=== PATIENT | female | born 1950 | race Caucasian/White ===

== ENCOUNTER 2020-01-13 13:35 | Emergency (ER) | payer MEDICARE ==
[~2020-01-13] VITALS: Ht 162.6 cm; Wt 102.7 kg
[~2020-01-13 13:35] MED LIST: CALCIUM PO; MULTI-DAY1 TA1 PO; TOPROL XL200 MG PO; TYLENOL 500MG500 MG PO
[2020-01-13 13:41] VITALS: TEMP 98.3
[2020-01-13] MEDS ORDERED: XARELTO20 MG PO (14:14)
[2020-01-13] MEDS ORDERED: TOPROL XL 50MG50 MG PO (14:15)
[2020-01-13] MEDS ORDERED: [UNRECOGNIZED DRUG - CODE] (14:16)
[2020-01-13] MEDS ORDERED: ZOLOFT 25MG25 MG PO (14:17)
[2020-01-13] MEDS ORDERED: LASIX 40MG TABL40 MG PO (14:19)
[2020-01-13] MEDS ORDERED: ULTRAM 50MG TAB50 MG PO (14:55)
[2020-01-13 15:28] VITALS: BP 128/60; PULSE 66
== END 2020-01-13 15:30 | disposition home or self-care (01) ==
LOC: COL.ER 13:35
DX: S80.02XA Contusion of left knee, initial encounter (principal); I48.91 Unspecified atrial fibrillation; Z79.82 Long term (current) use of aspirin; Z79.01 Long term (current) use of anticoagulants; W10.9XXA Fall (on) (from) unspecified stairs and steps, initial encounter; Y92.009 Unspecified place in unspecified non-institutional (private) residence as the place of occurrence of the external cause

== ENCOUNTER → 2020-06-08 | Outpatient (CLI) | payer MEDICARE, MEDICAID ==
[~2020-06-08] MED LIST changes: +CALCIUM 600MG+D1 TAB PO; +CRESTOR20 MG PO; +DESYREL 100MG100 MG PO; +FOSAMAX 70MG TA70 MG PO; +LASIX 40MG TABL40 MG PO; +MULTIVITAMIN SEN; +TOPROL XL 50MG50 MG PO; +ULTRAM 50MG TAB50 MG PO; +XARELTO20 MG PO; +ZOLOFT 25MG25 MG PO; +[UNRECOGNIZED DRUG - CODE]
== END ==
LOC: MC.RAD 11:45
DX: Z12.31 Encounter for screening mammogram for malignant neoplasm of breast (principal)

== ENCOUNTER 2020-08-09 08:48 | Day surgery (SDC) | payer MEDICARE, MEDICAID ==
[~2020-08-09] VITALS: Ht 162.6 cm; Wt 109.0 kg
[~2020-08-09 08:48] MED LIST changes: -CALCIUM 600MG+D1 TAB PO; -CRESTOR20 MG PO; -DESYREL 100MG100 MG PO; -FOSAMAX 70MG TA70 MG PO; -MULTIVITAMIN SEN
[2020-08-09] MEDS ORDERED: FOSAMAX 70MG TA70 MG PO (09:46)
[2020-08-09] MEDS ORDERED: CRESTOR20 MG PO (09:47)
[2020-08-09] MEDS ORDERED: DESYREL 100MG100 MG PO (09:48)
[2020-08-09] MEDS ORDERED: MULTIVITAMIN SEN (09:48)
[2020-08-09 10:05] VITALS: BP 132/74; PULSE 56; TEMP 98.1
[2020-08-09 11:15] VITALS: BP 116/72; PULSE 58
--- NOTE | 2020-08-09 11:15 | NUR ---
Pt to GI bay 4 via cart from [facility] [facility]. Pt drowsy, but awake. Pt denies pain or nausea. Pt ambulates to recliner with stand by assistance. Warm blanket provided. Muffin and water given per pt request. Will continue to monitor. Call light within reach.
[2020-08-09 11:30] VITALS: BP 132/72; PULSE 61
--- NOTE | 2020-08-09 11:30 | NUR ---
Pt continues to rest. Denies pain or nausea. Call light within reach.
[2020-08-09 11:45] VITALS: BP 122/63; PULSE 60
--- NOTE | 2020-08-09 11:45 | NUR ---
Pt c/o of pain to left side of panus. Upon inspection an approximetly 2 inch superficial skin tear noted to the crease of the left panus. Area cleansed with guaze and NS. Triple antibotic ointment applied. aware. No futher orders at this time. Discharge instructions reviewed. Pt voices understanding. IV site discontinued with all parts intact. Pt up to dress. Call light within reach.
--- NOTE | 2020-08-09 12:10 | NUR ---
Pt escorted to private car via wheel chair. Pt accompanied home by her friend.
== END 2020-08-09 12:10 | disposition home or self-care (01) ==
LOC: SDCO 08:48
DX: K22.4 Dyskinesia of esophagus (principal); R19.7 Diarrhea, unspecified; K64.8 Other hemorrhoids; Z90.49 Acquired absence of other specified parts of digestive tract; Z90.710 Acquired absence of both cervix and uterus; I10 Essential (primary) hypertension; I08.0 Rheumatic disorders of both mitral and aortic valves; Z86.73 Personal history of transient ischemic attack (TIA), and cerebral infarction without residual deficits; I48.0 Paroxysmal atrial fibrillation; Z85.3 Personal history of malignant neoplasm of breast; E66.9 Obesity, unspecified; Z68.39 Body mass index [BMI] 39.0-39.9, adult; Z90.721 Acquired absence of ovaries, unilateral
CPT/HCPCS: J2704; J7030

== ENCOUNTER 2020-12-04 11:27 | Day surgery (SDC) | payer MEDICARE, MEDICAID ==
[2020-12-04] VITALS (11 sets, daily range): BP systolic 115–170; BP diastolic 62–99; PULSE 53–73; TEMP 98.4
[~2020-12-04] VITALS: Ht 162.6 cm; Wt 108.0 kg
[~2020-12-04 11:27] MED LIST changes: +CRESTOR20 MG PO; +DESYREL 100MG100 MG PO; +FOSAMAX 70MG TA70 MG PO; +MULTIVITAMIN SEN
[2020-12-04] MEDS ORDERED: CALCIUM 600MG+D1 TAB PO (12:07)
[2020-12-04 12:50] LABS: HEMOGLOBIN 10.6 g/dl (12.5-16.0); MEAN CELL VOLUME 95 fl (80.0-100.0); MEAN CORPUSCULAR HEMOGLOBIN 31 pg (27.0-31.0); MEAN CORPUSCULAR HGB CONC 32 g/dl (33.0-37.0); MEAN PLATELET VOLUME 10.4 fl (7.4-10.4); PLATELET COUNT 197 K/mm3 (130-400); RED BLOOD COUNT 3.47 M/mm3 (4.10-5.30)
[2020-12-04 12:57] LABS: PROTHROMBIN TIME 11.4 SECONDS (9.7-12.8)
[2020-12-04 12:59] LABS: PARTIAL THROMBOPLASTIN TIME 31.3 SECONDS (26.0-37.0)
[2020-12-04 13:03] LABS: ALBUMIN 3.4 gm/dL (3.5-5.0); BILIRUBIN,TOTAL 0.3 mg/dL (0.0-1.0); CALCIUM 8.2 mg/dL (8.4-10.2); CREATININE, serum 0.93 (0.52-1.25); MAGNESIUM 2.2 mg/dL (1.6-2.3); POTASSIUM 4.4 mmol/L (3.4-5.0)
--- NOTE | 2020-12-04 14:45 | NUR ---
Pt back to express unit from slab installer after [facility]< bs report from Ernestine VALDEZ. Pt is awake and alert, TR band to rt wrist, cms intact distal. sister at bs. pt aware of poc, nsr/sb on monitor. menu provided, call light in reach, water provided. wctm.
--- NOTE | 2020-12-04 17:00 | NUR ---
We are in process of deflating TR band, no bleeding problems as of yet. Pt has been ambulatory in room to br in rm 15. steady gait. she has partially dressed and is now resting comfortably back on cot. will request tylenol for headache. We are also reviewing dc and fu instructions at this time.
--- NOTE | 2020-12-04 18:00 | NUR ---
Pt ready for departure at this time. TR band has been deflated and site dressed with bandaid, folded 2x2 and coban. cms remains intact distal. we reviewed dc and fu instructions again, and Dr. Ba stopped by to discuss procedure with pt, no questions or concerns at time of departure. IV dc'd with cath intact, dressing applied. pt to exit via wheelchair.
== END 2020-12-04 18:10 | disposition home or self-care (01) ==
LOC: COL.CAR 11:27
PROVIDERS: Internal Medicine Cardiovascular Disease
DX: R07.89 Other chest pain (principal); R06.00 Dyspnea, unspecified; R94.39 Abnormal result of other cardiovascular function study; E78.2 Mixed hyperlipidemia; E66.9 Obesity, unspecified; I48.0 Paroxysmal atrial fibrillation; I10 Essential (primary) hypertension; I08.0 Rheumatic disorders of both mitral and aortic valves; Z20.822 Contact with and (suspected) exposure to COVID-19; Z85.3 Personal history of malignant neoplasm of breast; Z86.73 Personal history of transient ischemic attack (TIA), and cerebral infarction without residual deficits; Z68.41 Body mass index [BMI] 40.0-44.9, adult
CPT/HCPCS: J1644; J2250; J3010; Q9967

== ENCOUNTER → 2021-02-22 | Outpatient (CLI) | payer MEDICARE, MEDICAID ==
[~2021-02-22] MED LIST changes: +CALCIUM 600MG+D1 TAB PO
== END ==
LOC: COL.RAD 13:43
DX: E05.90 Thyrotoxicosis, unspecified without thyrotoxic crisis or storm (principal)

== ENCOUNTER → 2021-03-06 | Outpatient (CLI) | payer MEDICARE, MEDICAID | LOC: COL.RAD 12:07 | DX: G43.009 Migraine without aura, not intractable, without status migrainosus (principal); Z86.73 Personal history of transient ischemic attack (TIA), and cerebral infarction without residual deficits ==

== ENCOUNTER → 2021-05-21 | Outpatient (CLI) | payer MEDICARE, MEDICAID | LOC: COL.CARD 04-09 10:00 | DX: R42 Dizziness and giddiness (principal); G43.009 Migraine without aura, not intractable, without status migrainosus; Z86.73 Personal history of transient ischemic attack (TIA), and cerebral infarction without residual deficits ==

== ENCOUNTER → 2021-06-18 | Outpatient (CLI) | payer MEDICARE, MEDICAID | LOC: MC.RAD 10:11 | DX: Z12.31 Encounter for screening mammogram for malignant neoplasm of breast (principal) ==

== ENCOUNTER 2021-12-17 14:17 | Emergency (ER) | payer MEDICARE, MEDICAID ==
[~2021-12-17] VITALS: Ht 162.6 cm; Wt 113.6 kg
[2021-12-17 14:32] VITALS: TEMP 98
[2021-12-17 18:15] LABS: BASO % 0.3 % (0.0-2.0); EOS # 0.2 K/mm3 (0.0-0.7); EOS % 2.2 % (0.0-4.0); GRAN # 3.6 K/mm3 (1.4-6.5); GRAN % 46.8 % (42.2-75.2); HEMOGLOBIN 11.6 g/dl (12.5-16.0); LYMPH # 3.3 K/mm3 (1.2-3.4); LYMPH % 43.6 % (20.0-51.0); MEAN CELL VOLUME 92 fl (80.0-100.0); MEAN CORPUSCULAR HEMOGLOBIN 30 pg (27-31); MEAN CORPUSCULAR HGB CONC 33 g/dl (33.0-37.0); MEAN PLATELET VOLUME 10.8 fl (7.4-10.4); MONO # 0.5 K/mm3 (0.1-0.6); PLATELET COUNT 206 K/mm3 (130-400); RED BLOOD COUNT 3.83 M/mm3 (4.10-5.30); REDCELL DISTRIBUTION WIDTH-CV 14.2 % (11.5-14.5)
[2021-12-17 18:20] LABS: HEMATOCRIT 35.2 % (37.0-47.0)
[2021-12-17 19:25] VITALS: BP 140/61; PULSE 52
[2021-12-17 19:34] LABS: ALANINE AMINOTRANSFERASE 48 U/L (0-55); ALBUMIN 3.3 gm/dL (3.4-4.8); ALKALINE PHOSPHATASE 129 U/L (40-150); ANION GAP 12 mmol/L (7-16); AST,SGOT 66 U/L (5-34); BILIRUBIN,TOTAL 0.4 mg/dL (0.2-1.2); BLOOD UREA NITROGEN 17 mg/dL (10-20); CARBON DIOXIDE 24 mmol/L (23-31); CHLORIDE 108 mmol/L (98-107); CREATININE, serum 0.93 mg/dL (0.57-1.11); GLUCOSE 90 mg/dL (70-99); POTASSIUM 3.3 mmol/L (3.5-4.5); SODIUM 144 mmol/L (136-145); TOTAL PROTEIN 6.4 gm/dL (6.2-8.1)
[2021-12-17 19:43] LABS: TROPONIN-I < 0.010 ng/mL (0.00-0.033)
== END 2021-12-17 19:25 | disposition home or self-care (01) ==
LOC: COL.ER 14:17
PROVIDERS: Nurse Practitioner Primary Care
DX: R51.9 Headache, unspecified (principal)
CPT/HCPCS: J0595

== ENCOUNTER 2023-02-08 16:40 | Emergency (ER) | payer MEDICARE, MEDICAID ==
[~2023-02-08] VITALS: Ht 162.6 cm; Wt 104.5 kg
[~2023-02-08 16:40] MED LIST changes: +AVAPRO TAB150 MG/TAB PO; +CENTRUM SILVER1 TAB PO; +CEPHALEXIN500 M1 PO; +PERCOCET 325 MG1 TA2 PO; +PROZAC 20MG20 MG PO; +TAMIFLU 75MG75 MG PO; +TESSALON P100 MG/CAP PO
[2023-02-08 16:44] VITALS: TEMP 98.2
[2023-02-08 22:00] VITALS: BP 148/78; PULSE 62
== END 2023-02-08 23:00 | disposition short-term general hospital (02) ==
LOC: COL.ER 16:40
DX: S09.90XA Unspecified injury of head, initial encounter (principal); S70.01XA Contusion of right hip, initial encounter; G93.89 Other specified disorders of brain; Z79.01 Long term (current) use of anticoagulants; W01.0XXA Fall on same level from slipping, tripping and stumbling without subsequent striking against object, initial encounter; Y93.01 Activity, walking, marching and hiking; Y92.009 Unspecified place in unspecified non-institutional (private) residence as the place of occurrence of the external cause
CPT/HCPCS: J2270; J2405

== ENCOUNTER → 2023-05-21 | Outpatient (CLI) | payer MEDICARE, MEDICAID ==
[~2023-05-21] MED LIST changes: +CEFTIN 250250 MG/TAB PO
== END ==
LOC: COL.VAS 12:13
DX: Z51.11 Encounter for antineoplastic chemotherapy (principal); I35.1 Nonrheumatic aortic (valve) insufficiency; C50.411 Malignant neoplasm of upper-outer quadrant of right female breast

== ENCOUNTER 2023-05-25 20:22 | Inpatient (IN) | payer MEDICARE, MEDICAID ==
[~2023-05-25] VITALS: Ht 160 cm; Wt 98.4 kg
[2023-05-25] MEDS ORDERED: Ondansetron 4 MG/2 ML VIAL IV ONE (21:30)
[2023-05-25] MEDS ORDERED: Morphine 4 MG/ML VIAL IV ONE (21:30)
[2023-05-25] MEDS ORDERED: NS 1,000 ML IV ONE ×2 (21:30→23:00)
[2023-05-25 21:59] LABS: BASO % 0.5 % (0.0-2.0); EOS % 0.2 % (0.0-4.0); GRAN # 2.4 K/mm3 (1.4-6.5); GRAN % 36.5 % (42.2-75.2); LYMPH # 3.4 K/mm3 (1.2-3.4); MEAN CELL VOLUME 91 fl (80.0-100.0); MEAN CORPUSCULAR HGB CONC 31 g/dl (33.0-37.0); MEAN PLATELET VOLUME 10.7 fl (7.4-10.4); MONO # 0.7 K/mm3 (0.1-0.6); MONO % 10.9 % (1.7-9.3); PLATELET COUNT 325 K/mm3 (130-400); RED BLOOD COUNT 3.04 M/mm3 (4.10-5.30); REDCELL DISTRIBUTION WIDTH-CV 18.2 % (11.5-14.5)
[2023-05-25 22:08] LABS: HEMOGLOBIN 8.5 g/dl (12.5-16.0); MEAN CORPUSCULAR HEMOGLOBIN 28 pg (27-31)
[2023-05-25 22:09] LABS: HEMATOCRIT 27.8 % (37.0-47.0)
[2023-05-25 22:10] LABS: ALBUMIN 2.7 gm/dL (3.4-4.8); BILIRUBIN,TOTAL 0.4 mg/dL (0.2-1.2); C-REACTIVE PROTEIN 0.23 mg/dL (0.00-0.50); CALCIUM 8.9 mg/dL (8.4-10.2); CREATININE, serum 1.78 mg/dL (0.57-1.11); MAGNESIUM 2.3 mg/dL (1.6-2.6); POTASSIUM 3.5 mmol/L (3.5-4.5); TOTAL PROTEIN 5.7 gm/dL (6.2-8.1)
[2023-05-26] MEDS ORDERED: Acetaminophen 500 MG TAB PO ONE (00:30)
[2023-05-26] MEDS ORDERED: FOSAMAX 70MG TA70 MG PO ×2 (00:56→08:07)
[2023-05-26] MEDS ORDERED: ANECREAM30 TP (00:57)
[2023-05-26] MEDS ORDERED: CRESTOR20 MG PO (00:58)
[2023-05-26] MEDS ORDERED: Acetaminophen 325 MG TAB PO PRN (01:15)
[2023-05-26] MEDS ORDERED: Ondansetron 4 MG/2 ML VIAL IV PRN (01:15)
[2023-05-26] MEDS ORDERED: Lidocaine 5% Ointment 35.44 GM TUBE TP PRN (01:15)
[2023-05-26] MEDS ORDERED: LR 1,000 ML IV SCH (01:15)
[2023-05-26] MEDS ORDERED: Melatonin 3 MG TAB PO PRN (01:15)
[2023-05-26] MEDS ORDERED: Polyethylene Glycol 3350 17 GM PDS PO PRN (01:15)
[2023-05-26 01:50] LABS: PH 5.5 (5.0-8.5); URINE APPEARANCE TURBID (CLEAR/HAZY); URINE COLOR OTHER (YELLOW)
[2023-05-26 01:51] LABS: URINE BLOOD 3+ (NEGATIVE); URINE GLUCOSE Negative (NEGATIVE); URINE KETONE Negative (NEGATIVE); URINE NITRATE Positive (NEGATIVE); URINE PROTEIN(semi-quant) 3+ (NEGATIVE); URINE UROBILINOGEN 0.2 E.U/dL (0.2-1.0)
[2023-05-26 02:01] LABS: URINE RBC >50 /hpf (0-2)
[2023-05-26 02:02] LABS: AMORPHOUS CRYSTAL Present (NOT PRESENT); URINE BACTERIA Rare /hpf (NONE SEEN)
[2023-05-26 02:04] VITALS: BP 103/68; PULSE 64; TEMP 97.9
--- NOTE | 2023-05-26 02:05 | NUR ---
PT ADMITTED FROM ER. WEAKNESS, DANIEL, CA- METS. A&OX4. ORIENTED TO ROOM. PROVIDED PLAN OF CARE. NS PER PUMP TO RT MILIND CATH. AT 150CC/HR THEN WILL CHANGE TO LR AT 100CC/HR. HAS RECTAL FISSURES. VERY PAINFUL WITH BM'S, SEVERAKL TREATMENT HAS BEEN TRIED. CALL LIGHT IN REACH. BED ALARM SET.
[2023-05-26] MEDS ORDERED: Naloxone 0.4 MG/ML VIAL IV PRN (02:45)
[2023-05-26] MEDS ORDERED: HYDROcodone/Acetaminophen 10-325 MG TAB PO PRN (02:45)
--- NOTE | 2023-05-26 02:50 | NUR ---
ROSA ISELA HANSON APRN HERE TO SEE PT. SEE NEW ORDERS FOR DNR AND PAIN MEDICATION. SEE MAR FOR NORCO 5MG PO GIVEN FOR GENEERAL ACHES/ RECTAL PAIN LEVEL 09/28.
[2023-05-26] MEDS ORDERED: XARELTO20 MG PO (03:05)
--- NOTE | 2023-05-26 06:06 | NUR ---
PT SLEEPING. NO DISTRESS AT THIS TIME.
[2023-05-26 07:35] VITALS: BP 110/73; PULSE 57; TEMP 97.9
[2023-05-26] MEDS ORDERED: NORCO 325 MG-51 TAB PO (08:09)
[2023-05-26] MEDS ORDERED: CRESTOR 10MG10 MG PO (08:10)
[2023-05-26] MEDS ORDERED: TOPROL XL 50MG50 MG PO (08:11)
[2023-05-26] MEDS ORDERED: XANAX 0.5MG0.5 MG PO (08:12)
[2023-05-26] MEDS ORDERED: STOOL SOFTENER100 M2 PO (08:12)
[2023-05-26] MEDS ORDERED: PROTONIX 40MG T40 MG PO (08:13)
[2023-05-26] MEDS ORDERED: AVAPRO TAB150 MG/TAB PO (08:13)
--- NOTE | 2023-05-26 08:34 | NUR ---
Pt alert and oriented this AM. States she is feeling much better than when she came in. Still feels slightly weak, but almost at baseline. Offers no complaints of pain at this itme. Breakfast ordered. Call light in reach.
[2023-05-26] MEDS ORDERED: Sennosides/Docusate 8.6-50 MG TAB PO SCH (09:00)
[2023-05-26 09:49] LABS: COLLECTION METHOD CATHETER
[2023-05-26 09:50] LABS: CALCIUM 8.3 mg/dL (8.4-10.2); CREATININE, serum 1.47 mg/dL (0.57-1.11); POTASSIUM 3.6 mmol/L (3.5-4.5)
[2023-05-26 11:41] VITALS: BP 108/72; PULSE 63; TEMP 97.7
[2023-05-26] MEDS ORDERED: Fluconazole 100 MG TAB PO SCH (12:00)
[2023-05-26] MEDS ORDERED: cefTRIAXone 1 G in Water For Injection,Sterile 10 ML IV SCH (12:00)
[2023-05-26] MEDS ORDERED: Miconazole 2% Topical Powder BOTTLE TP SCH (12:00)
--- NOTE | 2023-05-26 14:31 | NUR ---
D: Initial visit: Barrel Coater stopped by room on rounds. Pt was resting and on the phone. A: Pt requested prayers. Pt has cancer and is in a graves. Pt expressed concern about next steps. Barrel Coater prayed with pt and explicitly prayed for wisdom, peace and comfort. Pt appreciated the visit. P: Barrel Coater informed pt that if she needed anything from the screen printing equipment setter area to let her nurse know. Barrel Coater will follow up as needed.
--- NOTE | 2023-05-26 15:59 | NUR ---
Accelerator Operator met with patient and her son, Sylvester (ph#[phone]) to discuss discharge planning. Patient lives in [place] and her son, Sylvester has been staying with her but this is not indefinite. Patient sees Dr. Diego for primary care and Dr. Alaniz for Oncology. Patient obtains medications from [facility] on [address]. Patient does not drive and relies on others, like her son for transportation to appointments. Patient has a walker, wheelchair, and cane available at home along with a transfer bench and grab bars in the bathroom. Patient is normally independent with ADLS but has been increasingly weak and Sylvester is getting to the point where she is too much care for him. SW discussed SNF with patient but also discussed that this would mean holding her immunotherapy while she is there. Sylvester stated "that's what keeps her alive" and did not think this would be an option. When SW discussed Home Health, it seemed this would not be enough support. BRANDON collaborated with JOSÉ MIGUEL Grant at Dr. Alaniz's office on discharge planning. BRANDON received a message from Juanita that advised Dr. Alaniz would be in support of holding treatment while patient is at rehab. BRANDON will follow up on rehab referrals tomorrow. Discharge Plan: Recommendation is SNF
[2023-05-26 16:00] VITALS: BP 102/56; PULSE 63; TEMP 97.9
[2023-05-26 16:38] VITALS: BP_SYST 102
[2023-05-26] MEDS ORDERED: Rivaroxaban 15 MG TAB PO SCH (17:00)
--- NOTE | 2023-05-26 19:00 | NUR ---
PATIENT SITTING UP IN BED WITH TV OFF WITH NO FAMILY PRESENT WITH NO ACUTE DISTRESS NOTED. PATIENT ON ROOM AIR. LR INFUSING INTO RIGHT UPPER CHEST PORT WITH NO COMPLICATIONS NOTED. PATIENT CARE ASSUMED FROM DEVIN Shultz AT THIS TIME. PATINET C/O PAIN AND VERBALIZED UNDERSTANDING THAT PAIN MEDICATION WOULD BE GIVEN. PATIENT DENIES ANY OTHER NEEDS. BED IN LOW POSITION WITH WHEELS LOCKED WITH RAILS UP X3 AND CALL LIGHT WITHIN REACH.
--- NOTE | 2023-05-26 19:55 | NUR ---
PATIENT RESTING IN BED WITH TV OFF WITH NO ACUTE DISTRESS NOTED. PATIENT ON ROOM AIR. LR INFUSING INTO RIGHT CHEST PORT WITH NO COMPLICATIONS NOTED. ASSESSMENT AND MEDICATION ADMINISTRATION COMPLETED AT THIS TIME. PATIENT C/O PAIN. PO NORCO GIVEN PER MD ORDER. PATIENT C/O LEFT EYE PAIN. WARM COMPRESS MADE WITH WASHRAGE AND APPLIED TO EYE. YELLOW DISCHARGE NOTED. PATIENT DENIES ANY OTHER NEEDS AT THIS TIME. BED IN LOW POSITION WITH WHEELS LOCKED WITH RAILS UP X2 AND CALL LIGHT WITHIN REACH.
--- NOTE | 2023-05-26 20:49 | NUR ---
ROSA ISELA STYLES HOSPITALIST CALLED FOR PATIENT EYE PAIN AND YELLOW DISCHARGE. HOSPITALIST SAID HE WOULD COME LOOK AT HER EYE.
[2023-05-26] MEDS ORDERED: Atorvastatin 40 MG TAB PO SCH (21:00)
[2023-05-26] MEDS ORDERED: Rosuvastatin 20 MG **** subs to Atorvastatin 40 MG PO SCH (21:00)
[2023-05-26 23:07] VITALS: BP 110/70; PULSE 97; TEMP 97.5
--- NOTE | 2023-05-26 23:30 | NUR ---
HOSPITALIST ROSA ISELA LOPEZLETS IN TO SEE PATIENT AT THIS TIME. VERBALLY STATED HE WOULD PUT IN AN ORDER FOR SOME EYE MEDICATION.
[2023-05-26] MEDS ORDERED: Erythromycin 0.5% Ophth Oint 3.5 GM TUBE OP SCH (23:44)
[2023-05-27] VITALS (18 sets, daily range): BP systolic 88–119; BP diastolic 45–79; PULSE 69–97; TEMP 97.3–98.5
[2023-05-27 07:10] LABS: MEAN CELL VOLUME 89 fl (80.0-100.0); MEAN CORPUSCULAR HGB CONC 32 g/dl (33.0-37.0); MEAN PLATELET VOLUME 10.3 fl (7.4-10.4); PLATELET COUNT 233 K/mm3 (130-400); RED BLOOD COUNT 2.51 M/mm3 (4.10-5.30); REDCELL DISTRIBUTION WIDTH-CV 18.3 % (11.5-14.5)
[2023-05-27 07:15] LABS: CALCIUM 8.5 mg/dL (8.4-10.2); CREATININE, serum 1.11 mg/dL (0.57-1.11); MAGNESIUM 1.9 mg/dL (1.6-2.6); POTASSIUM 3.4 mmol/L (3.5-4.5)
[2023-05-27 07:18] LABS: HEMATOCRIT 22.3 % (37.0-47.0); HEMOGLOBIN 7.2 g/dl (12.5-16.0); MEAN CORPUSCULAR HEMOGLOBIN 29 pg (27-31)
[2023-05-27 08:08] LABS: ANISOCYTOSIS 2+; BAND 1 % (0-10); LYMPHOCYTE 64 % (20.0-51.0); NEUTROPHILS 25 % (42.0-75.2); PLATELET ESTIMATE NORMAL (NORMAL)
--- NOTE | 2023-05-27 08:49 | NUR ---
PATIENT ALERT AND ORIENTED X4. VSS. PATIENT HERE FOR WEAKNESS R/T CHEMO TREATMENT. PORTACATH WITH LR RUNNING AT 100ML/HOUR. PATIENT DENIES ANY PAIN THIS MORNING. FAMILIA/RECTUM EXCORIATED, POWDER BEING APPLIED NEEDED. PATIENT UP EATING BREAKFAST. DENIES ANY N/V. NO FURTHER NEEDS. CALL LIGHT IN REACH.
--- NOTE | 2023-05-27 16:31 | NUR ---
Second Helper followed up with patient and son, Sylvester to discuss SNF and provided Medicare.gov list of SNF options. Patient would like referrals sent to [facility]. BRANDON faxed referrals to both. [facility] is full and has no anticipated openings this week. BRANDON Lord uploaded clinicals to [facility] to request auth.
--- NOTE | 2023-05-27 18:34 | NUR ---
Assumed care of patient at approximately 1115. Assessment completed. Received 1U PRBC. Tolerated well. Blood pressures improved. IVF infusing, as ordered, to PAC. Pt c/o pain to her bottom while sitting up in chair or bed. May adminsitered for pain. Waffle mattress placed on bed for comfort. Uses nystatin and is on scheduled fluconazole.
--- NOTE | 2023-05-27 18:55 | NUR ---
PATIENT RESTING IN BED WITH NO ACUTE DISTRESS NOTED. PATIENT ON ROOM AIR. LR INFUSING INTO RIGHT CHEST PORT WITH NO COMPLICATIONS NOTED. PATIENT DENIES ANY NEEDS. PATIENT CARE ASSUMED FROM DEVIN AT THIS TIME. BED IN LOW POSITION WITH WHEELS LOCKED WITH RAILS UP X3 AND CALL LIGHT WITHIN REACH.
--- NOTE | 2023-05-27 19:35 | NUR ---
PATIENT RESTING IN BED WATCHING TV WITH NO ACUTE DISTRESS NOTED. PATIENT ON ROOM AIR. LR INFUSING INTO RIGHT UPPER CHEST PORT WITH NO COMPLICATIONS NOTED. ASSESSMENT COMPLETED. PATIENT TOLERATED WELL. PATIENT DENIES ANY NEEDS AT THIS TIME. BED IN LOW POSITION WITH WHEELS LOCKED WITH RAILS UP X3 AND CALL LIGHT WITHIN REACH.
--- NOTE | 2023-05-27 20:50 | NUR ---
PATIENT RESTING IN BED WITH EYES CLOSED WITH TV OFF WITH NO ACUTE DISTRESS NOTED. PATIENT EASILY AROUSED. MEDICATION ADMINISTRATION COMPLETED AT THIS TIME. PATIENT TOLERATED WELL. SEE EMAR. PATIENT ASSISTED UP TO BATHROOM PER PATIENT REQUEST. PATIENT GAIT STEADY WITH WALKER. PATIENT VOIDED 200 ML OF ANGEL LUIS CLEAR URINE. PATIENT COMPLETED OWN FAMILIA CARE. LOTION SPRAY APPLIED WITH NIASTATIN POWERED. PATIENT TOLERATED WELL. PATIENT ASSISTED BACK TO BED AND HELPED TO REPOSITION FOR COMFORT. ALL NEEDS MET. BED IN LOW POSITION WITH WHEELS LOCKED WITH RAILS UP X3 AND CALL LIGHT WITHIN REACH.
[2023-05-28 03:05] VITALS: BP 124/58; PULSE 63; TEMP 97.7
[2023-05-28 04:30] VITALS: BP_SYST 124
[2023-05-28 07:30] VITALS: BP 112/72; PULSE 65; TEMP 97.7
[2023-05-28 07:53] LABS: HEMATOCRIT 25.6 % (37.0-47.0); MEAN CELL VOLUME 89 fl (80.0-100.0); MEAN CORPUSCULAR HEMOGLOBIN 28 pg (27-31); MEAN CORPUSCULAR HGB CONC 31 g/dl (33.0-37.0); MEAN PLATELET VOLUME 10.5 fl (7.4-10.4); PLATELET COUNT 233 K/mm3 (130-400); RED BLOOD COUNT 2.89 M/mm3 (4.10-5.30); REDCELL DISTRIBUTION WIDTH-CV 18.9 % (11.5-14.5)
[2023-05-28 08:07] LABS: CALCIUM 8.3 mg/dL (8.4-10.2); CREATININE, serum 1.17 mg/dL (0.57-1.11)
[2023-05-28] MEDS ORDERED: XARELTO15 MG PO (09:19)
[2023-05-28] MEDS ORDERED: DESENEX TP (09:21)
[2023-05-28] MEDS ORDERED: ILOTYCIN5 MG/GM OP (09:22)
[2023-05-28] MEDS ORDERED: LIDO35.4 TP (09:22)
[2023-05-28] MEDS ORDERED: MIRALAX510G PO (09:22)
[2023-05-28] MEDS ORDERED: DIFLUCAN200 MG PO (09:24)
[2023-05-28] MEDS ORDERED: XANAX 0.5MG0.5 MG PO (09:27)
[2023-05-28] MEDS ORDERED: NORCO 325 MG-51 TAB PO (09:27)
[2023-05-28 09:55] LABS: LYMPHOCYTE 76 % (20.0-51.0); METAMYELOCYTE 1 % (0-0); NEUTROPHILS 19 % (42.0-75.2)
[2023-05-28 09:56] LABS: ANISOCYTOSIS 2+; HYPOCHROMIA 2+; PLATELET ESTIMATE NORMAL (NORMAL)
[2023-05-28 10:17] VITALS: BP_SYST 112
--- NOTE | 2023-05-28 12:21 | NUR ---
Supervisor Real Estate Office met with patient to provide update on referrals. BRANDON advised [facility] is full but that [facility] can accept. Patient is agreeable to go to [facility]. BRANDON spoke with Joselito at [facility] who advised they have [employer] authorization and can accept today. Transport time set for 1300. BRANDON provided discharge orders via secure email. BRANDON contacted patient's son, Sylvester to provide the above update. Discharge Plan: [facility] SNF
[2023-05-28 13:02] VITALS: BP_SYST 112
--- NOTE | 2023-05-28 15:00 | NUR ---
Assessment completed this am. Wound care consulted for excoriation and open area to left gluteal fold. Moisture barrier appled to perianal area as recommended. Pt reports more relief since waffle overaly mattress placed yesterday evening. PAC deaccessed. Pt tolerated well. Pt discharged at 1400 to [facility]. Report called to Jim at 1500.
--- NOTE | 2023-05-28 15:08 | NUR ---
Report called to Jim at [facility].
[2023-05-31 13:26] LABS: PATHOLOGY DIFF REVIEW OK
== END 2023-05-28 14:00 | DRG 683 ==
LOC: COL.ER 20:22 → MEDICAL 05-26 01:06
PROVIDERS: Emergency Medicine; Internal Medicine; Physician Assistant; ADMIT Internal Medicine
PROC: 30233N1 Transfusion of Nonautologous Red Blood Cells into Peripheral Vein, Percutaneous Approach (ICD-10-PCS; principal; 2023-05-27)
DX: N17.9 Acute kidney failure, unspecified (principal); E87.20 Acidosis, unspecified; N39.0 Urinary tract infection, site not specified; E86.9 Volume depletion, unspecified; I10 Essential (primary) hypertension; Z66 Do not resuscitate; E78.5 Hyperlipidemia, unspecified; Z96.659 Presence of unspecified artificial knee joint; E66.9 Obesity, unspecified; F32.A Depression, unspecified; I48.0 Paroxysmal atrial fibrillation; R73.9 Hyperglycemia, unspecified; B35.6 Tinea cruris; E87.8 Other disorders of electrolyte and fluid balance, not elsewhere classified; E87.6 Hypokalemia; D64.9 Anemia, unspecified; S31.829A Unspecified open wound of left buttock, initial encounter; G47.00 Insomnia, unspecified; Z85.830 Personal history of malignant neoplasm of bone; Z85.841 Personal history of malignant neoplasm of brain; Z86.73 Personal history of transient ischemic attack (TIA), and cerebral infarction without residual deficits; Z92.3 Personal history of irradiation; Z90.710 Acquired absence of both cervix and uterus; Z88.2 Allergy status to sulfonamides; Z88.8 Allergy status to other drugs, medicaments and biological substances; Z85.3 Personal history of malignant neoplasm of breast; Z92.21 Personal history of antineoplastic chemotherapy; Z90.49 Acquired absence of other specified parts of digestive tract; Z85.118 Personal history of other malignant neoplasm of bronchus and lung; Z85.05 Personal history of malignant neoplasm of liver; Z90.89 Acquired absence of other organs; Z79.899 Other long term (current) drug therapy; Z68.39 Body mass index [BMI] 39.0-39.9, adult; Z23 Encounter for immunization
CPT/HCPCS: J0696; J1644; J2270; J2405; J7030; J7120; P9016

== ENCOUNTER → 2023-08-22 | Outpatient (CLI) | payer MEDICARE, MEDICAID ==
[~2023-08-22] MED LIST changes: +ANECREAM30 TP; +CRESTOR 10MG10 MG PO; +DESENEX TP; +DIFLUCAN200 MG PO; +ILOTYCIN5 MG/GM OP; +Iohexol 300 - 100 ML VIAL IV ONE; +LIDO35.4 TP; +MIRALAX510G PO; +NORCO 325 MG-51 TAB PO; +NS 100 ML IV SCH; +PROTONIX 40MG T40 MG PO; +STOOL SOFTENER100 M2 PO; +XANAX 0.5MG0.5 MG PO; +XARELTO15 MG PO
== END ==
LOC: COL.RAD 10:06
DX: C50.411 Malignant neoplasm of upper-outer quadrant of right female breast (principal); C79.51 Secondary malignant neoplasm of bone; K76.9 Liver disease, unspecified; K66.8 Other specified disorders of peritoneum; Z98.890 Other specified postprocedural states
CPT/HCPCS: J1644; Q9967